=== PATIENT | male | born 1960 | race Caucasian/White ===

== ENCOUNTER → 2021-01-17 | Outpatient (CLI) | payer OTHER ==
--- NOTE | 2021-01-17 16:34 | RAD ---
US DPLX CAROTID BILAT History: CVA, HTN Multiple grayscale, color, and duplex spectral analysis waveform sonographic images were acquired of the carotid, subclavian, and vertebral arteries. Comparison: None Findings: RIGHT SIDE: Peak systolic flow velocity of the distal CCA is 71 cm/sec. Peak systolic flow velocity of the ICA is 63 cm/sec. The ICA/CCA ratio is 0.9. Peak end diastolic flow velocity of the ICA is 23 cm/sec. The peak systolic velocity of the ECA is 101 cm/sec. LEFT SIDE: Peak systolic flow velocity of the distal CCA is 79 cm/sec. Peak systolic flow velocity of the ICA is 73 cm/sec. The ICA/CCA ratio is 0.9. Peak end diastolic flow velocity of the ICA is 30 cm/sec. Peak systolic flow velocity of the ECA is 58 cm/sec. Vertebral arteries: Bilateral vertebral arteries demonstrate antegrade flow. Impression: There is no evidence of a hemodynamically significant stenosis. PQRS Compliance Statement - Stenosis calculations for carotid ultrasound studies are derived from jie idated velocity criteria which are known to correlate with the NASCET methodology. Electronically signed by: Michael Chavez MD (01/17/2021 4:32 PM) TAL
== END ==
LOC: US 10:22
PROVIDERS: ATTEND Specialist
DX: I65.23 Occlusion and stenosis of bilateral carotid arteries (principal); I10 Essential (primary) hypertension; I63.9 Cerebral infarction, unspecified
CPT/HCPCS: 93880